=== PATIENT | female | born 2005 | race Caucasian/White ===

== ENCOUNTER 2023-05-03 16:18 | Emergency (ER) | payer OTHER, SELFPAY ==
[2023-05-03 16:28] VITALS: BP 131/84; PULSE 137; RESP 20; TEMP 37.4; O2SAT 99; BMI 30.1
[2023-05-03 16:44] LABS: Microscopic, Urine URINE MICROSCOPIC (MICROSCOPIC)
--- NOTE | 2023-05-03 16:46 | CT_ITS ---
PROCEDURE INFORMATION: Exam: CT Neck With Contrast Exam date and time: 05/03/2023 5:37 PM Age: 17 years old Clinical indication: Mass, lump, or swelling in neck; Right; Additional info: R neck swelling and ttp, concern for abscess TECHNIQUE: Imaging protocol: Computed tomography of the neck with contrast. Radiation optimization: All CT scans at this facility use at least one of these dose optimization techniques: automated exposure control; mA and/or kV adjustment per patient size (includes targeted exams where dose is matched to clinical indication); or iterative reconstruction. Contrast material: ISOVUE; Contrast volume: 75 ml; Contrast route: IV; REPORTING DATA: Count of CT and Cardiac NM exams in prior 12 months: This patient has received 0 known CTs and 0 known cardiac nuclear medicine studies in the 12 months prior to the current study. COMPARISON: CT ANGIO CHEST PE PROTOCOL 05/03/2023 5:32 PM FINDINGS: Limitations: Patient motion. Pharynx: There is enlargement and enhancement of the bilateral palatine tonsils. Larynx: Unremarkable. Epiglottis is normal. Prevertebral and retropharyngeal spaces: Unremarkable. Salivary glands: There is mass effect upon the right submandibular gland which is mildly Thyroid: Normal. No enlarged or calcified nodules. Lymph nodes: There is pathologic cervical lymphadenopathy measuring up to 2.7 by 2.3 cm at the right 2A level and 2.3 by 1.5 cm at the left 2A level. There are adjacent inflammatory changes greater on the right. Lymph nodes demonstrate heterogeneous enhancement. Trachea: Visualized trachea is unremarkable. Lungs: Unremarkable as visualized. Pleural spaces: No visible pneumothorax or consolidation. Bones/joints: Unremarkable. No acute fracture. Soft tissues: Unremarkable. No significant soft tissue swelling. Other findings: No discrete drainable fluid collection. displaced. IMPRESSION: 1. Pathologic lymphadenopathy involving the hdbhu-wjvdkjy-fzin-left neck with adjacent inflammatory change. Consider lymphadenitis, neoplastic process however is within the differential and follow-up is recommended. 2. Enlargement of the palatine tonsils with enhancement compatible with tonsillitis. 3. No discrete drainable fluid collection involving the soft tissues of the neck.
--- NOTE | 2023-05-03 16:50 | CT_ITS ---
PROCEDURE INFORMATION: Exam: CTA Chest With Contrast Exam date and time: 05/03/2023 5:32 PM Age: 17 years old Clinical indication: Shortness of breath; Additional info: SOB, cp, history of ivdu TECHNIQUE: Imaging protocol: Computed tomographic angiography of the chest with contrast. Exam focused on the arteries. 3D rendering (Not supervised by radiologist): MIP and/or 3D reconstructed images were created by the technologist. Radiation optimization: All CT scans at this facility use at least one of these dose optimization techniques: automated exposure control; mA and/or kV adjustment per patient size (includes targeted exams where dose is matched to clinical indication); or iterative reconstruction. Contrast material: ISOVUE; Contrast volume: 70 ml; Contrast route: INTRAVENOUS (IV); REPORTING DATA: Count of CT and Cardiac NM exams in prior 12 months: This patient has received 0 known CTs and 0 known cardiac nuclear medicine studies in the 12 months prior to the current study. COMPARISON: No relevant prior studies available. FINDINGS: Limitations: Respiratory motion artifact severely degrades images, limiting sensitivity of exam. Suboptimal contrast bolus timing with poor opacification of the peripheral pulmonary arteries, limiting sensitivity of exam. Pulmonary arteries: No evidence of large central pulmonary emboli. Respiratory motion artifact limits evaluation for definitive exclusion of smaller pulmonary emboli (subsegmental). Aorta: No aortic dissection or aneurysm. Lungs: No focal consolidation. No mass. Pleural spaces: No pneumothorax. No pleural effusion. Heart: Biventricular enlargement concerning for dilated cardiomyopathy. No significant pericardial effusion. Mediastinal space: Pyramidal soft tissue density in the upper anterior mediastinum compatible with normal thymic tissue. No evidence of mediastinal hematoma. Lymph nodes: No enlarged lymph nodes by CT criteria. Intraperitoneal space: No emergent findings or suspicious mass lesions in the visualized upper abdomen. Bones/joints: No acute osseous abnormality. Soft tissues: Unremarkable. IMPRESSION: 1. No acute findings in the chest. 2. No evidence of large central pulmonary emboli. Technically inadequate study for definitive exclusion of smaller pulmonary emboli (subsegmental). 3. Biventricular enlargement concerning for dilated cardiomyopathy. Echocardiogram could better evaluate if clinically indicated.
[2023-05-03 16:54] LABS: Appearance,Urine SL CLOUDY (Clear); Blood, Urine 3+ (Negative); Color,Urine DK YELLOW (Yellow); Glucose,Urine (UA) Negative (Negative); Ketones,Urine TRACE (Negative); Leukocyte Esterase,Urine Negative (Negative); Nitrate,Urine Negative (Negative); Protein,Urine 1+ (Negative); Specific Gravity, Urine >= 1.030 (1.005-1.030)
--- NOTE | 2023-05-03 16:54 | [facility].EDGENADL ---
Discharge Plan Disposition Patient Disposition: Home, Self-Care Condition: Good Prescriptions Prescriptions: New clindamycin HCl 300 mg capsule 300 mg PO BID 7 Days Qty: 14 0RF Clinical Impressions Clinical Impression: Acute lymphadenitis Instructions Patient Instructions: Lymphangitis Discharge ED Provider: Jacinto Martinez General Adult HPI General Chief complaint: Skin/Abscess/Foreign Body Stated complaint: swelling in neck Time Seen by Provider: 05/03/23 16:31 Mode of Arrival: Ambulatory Source of Information: Patient Limitations: No Limitations Description of Symptoms (Recalled from ER Triage Doc. by RN): pt presents to ED c/o right sided neck pain that started last night. pt states she has swelling. denies sore throat. pt states she recently relapsed on Meth. HR 137. pt states she called EMS earlier but denied transportation. History of Present Illness HPI narrative: Patient has a PMHx significant for IV drug use including meth, hepatitis C, asthma, diabetes, prior history of blood and skin infections including MRSA who presents to the ED with complaints of right-sided neck swelling. Patient notes that last night around 10:00pm, she started experiencing pain on the right side of her neck. Patient noted that the swelling since last night has significantly increased and has become more tender to palpation. Patient notes difficulty turning her neck towards the right side. Patient notes she has mild shortness of breath. Patient notes last IV drug use was 2 days ago with meth. Related Data Previous Rx's Medication Instructions Recorded clindamycin HCl 300 mg capsule 300 mg PO BID 7 days #14 caps 05/03/23 Allergies Allergy/AdvReac Type Severity Reaction Status Date / Time No Known Drug Allergies Allergy Verified 05/03/23 16:32 [facility] Disclaimer: The information contained in this section may have been updated after the patient was seen, as this information can be updated by other users. Social History Smoking Status: Current every day smoker alcohol intake: current current occupational status: unemployed Travel in the last 8 weeks: Inside the [place] ROS Obtained: Yes All systems reviewed & no additional complaints except as documented Physical Exam General General appearance: alert and in no apparent distress Head Head exam: atraumatic, normocephalic and normal inspection Eye Eye exam: Present normal appearance, PERRL and EOMI; Absent scleral icterus or nystagmus ENT ENT exam: Present normal exam, mucous membranes moist and normal external ear exam Neck Neck exam: Present normal inspection and trachea midline; Absent full ROM or tenderness (She has TTP over the R neck with palpable swelling/small mass) Chest Chest inspection: Present normal inspection and symmetric chest wall rise; Absent tenderness Respiratory Respiratory exam: Present normal lung sounds bilaterally; Absent respiratory distress, wheezes or accessory muscle use Cardiovascular Cardiovascular exam: Present regular rate, normal rhythm, tachycardia and normal heart sounds Abdominal Exam Abdominal exam: Present soft; Absent distention, tenderness, guarding, rebound, rigidity, trauma, ascites or pulsatile mass Extremities Exam Extremities exam: Present normal inspection and full ROM; Absent tenderness Back Exam Back exam: Present normal inspection and full ROM; Absent tenderness Neurological Exam Neurological exam: Present alert, oriented X3, normal gait and motor sensory deficit Psychiatric Psychiatric exam: Present normal affect and normal mood Skin Skin exam: Present warm, dry and normal color Medical Decision Making Medical Records Medical records reviewed: Yes I reviewed the patient's medical records. Prakash Inquiry Pt receiving controlled substance: No Vital Signs: 05/03/23 16:28 Temperature 99.3 F Temperature Source Oral Pulse Rate [Right Radial] 137 H Respiratory Rate 20 Blood Press
[2023-05-03 16:55] LABS: Urine Pregnancy, HCG Qual. Negative (Negative)
[2023-05-03 17:03] LABS: Basophils % 0.3 % (0.1-2.0); Eosinophils # 0.1 K/mm3 (0.0-0.4); Eosinophils % 0.5 % (0.1-12.0); Hematocrit 44.1 % (37.0-47.0); Lymphocytes # 2.5 K/mm3 (0.7-4.5); Mean Corpuscular HGB Conc 31.8 g/dL (31.8-35.4); Mean Corpuscular Volume 87.9 fl (81-99); Mean Platelet Volume 7.4 fl (7.4-10.4); Monocytes # 0.8 K/mm3 (0.1-1.0); Monocytes % 5.3 % (1.7-9.3); Neutrophils % 77.9 % (37.0-80.0); Platelet Count 264 K/mm3 (142-424); Red Blood Count 5.01 M/mm3 (4.20-5.40); White Blood Count 15.4 K/mm3 (4.5-13.0)
[2023-05-03 17:03] LABS: Bilirubin,Urine 1+ (Negative)
[2023-05-03 17:05] LABS: Lactic Acid 1.6 mmol/L (0.7-2.1)
[2023-05-03 17:05] LABS: Barbiturates Screen,Urine Negative ng/ml (<200); Benzodiazepines Screen,Urine Negative ng/ml (<200)
--- NOTE | 2023-05-03 17:05 | ECG_ITS ---
APPROVED REPORT Exam: Resting ECG HR:115 bpm ECG Measurements Heart Rate [address] 165 P 57 QRSd 82 QRS 55 QT 318 T 32 QTc 386 Conclusion SINUS TACHYCARDIA NONSPECIFIC T-WAVE ABNORMALITY ABNORMAL RHYTHM ECG UNCONFIRMED REPORT Electronically signed by : Luis Felipe Norris MD 05/04/2023 17:41:33
[2023-05-03 17:06] LABS: Cannabinoid Screen,Urine Positive ng/ml (<50)
[2023-05-03 17:07] LABS: Cocaine Screen,Urine Negative ng/ml (<300); Methadone Screen,Urine Negative ng/ml (<300)
[2023-05-03 17:08] LABS: Anion Gap 12.5 mEq/L (5-15); Blood Urea Nitrogen 7 mg/dl (7-17); C-Reactive Protein 60.3 mg/L (0-4); Calcium 8.8 mg/dl (8.4-10.2); Carbon Dioxide 27 mmol/L (22.0-30.0); Chloride 101 mmol/L (98-107); Creatinine Clearance Estimated 227 mL/min (50-200); Estimated Glomerular Filt Rate 129 ml/min (>60); GFR (African American) 156 ML/MIN (>60); Glucose 117 mg/dl (74-100); Potassium 3.5 mmoL/L (3.5-5.1); Sodium 137 mmol/L (136-145)
[2023-05-03 17:08] LABS: Opiate Screen,Urine Negative ng/ml (<300)
[2023-05-03 17:09] LABS: Phencyclidine Screen,Urine Negative ng/ml (<25)
[2023-05-03 17:12] LABS: Bacteria,Urine 1+ /lpf
[2023-05-03 17:14] LABS: Troponin I < 0.01 ng/ml (0.00-0.034)
[2023-05-03 17:18] LABS: MANUAL DIFFERENTIAL MANUAL DIFFERENTIAL (MANUAL DIFF)
[2023-05-03 17:21] LABS: Alanine Aminotransferase 123 U/L (12-78); Alkaline Phosphatase 90 U/L (38-126); Aspartate Amino Transferase 67 U/L (14-36); Bilirubin,Total 0.5 mg/dl (0.2-1.3); Globulin 4.1 g/dL (1.3-3.2); Total Protein,Serum 8.1 g/dl (6.3-8.2)
[2023-05-03 17:31] LABS: Amphetamine/Metha Screen,Urine Positive ng/ml (<1000)
[2023-05-03 17:42] LABS: Lymphocytes % 23 % (10-50); Monocytes % 3 % (2-9); Neutrophils % 74 % (42-76); Platelet Estimate Normal; RBC Morphology Normal; Total Cells Counted 100
[2023-05-03 20:38] LABS: Troponin I < 0.01 ng/ml (0.00-0.034)
[2023-05-03 20:42] VITALS: BP 124/75; PULSE 115; RESP 18; TEMP 37.2; O2SAT 99
== END 2023-05-03 20:54 | disposition home or self-care (01) ==
PROVIDERS: Emergency Provider Emergency Medicine
DX: L04.0 Acute lymphadenitis of face, head and neck (principal); F17.200 Nicotine dependence, unspecified, uncomplicated; J45.909 Unspecified asthma, uncomplicated; E11.9 Type 2 diabetes mellitus without complications; F15.90 Other stimulant use, unspecified, uncomplicated
CPT/HCPCS: 70491; 71275; 80053; 80305; 81001; 81025; 83605; 84484; 85007; 85025; 86140; 87040; 93005; 96361; 96365; 96375; 99285; Q9967